=== PATIENT | female | born 1985 | race Caucasian/White ===

== ENCOUNTER 2017-01-12 16:57 | Emergency (ER) | payer MEDICAID, OTHER ==
[~2017-01-12] VITALS: Ht 152.4 cm; Wt 70.0 kg
[~2017-01-12 16:57] MED LIST: BACT800T5 PO; DICY1TAB26 PO; ZOFR4TAB3 SL
[2017-01-12 17:01] VITALS: BP 144/67; PULSE 86; RESP 16; TEMP 97.8; O2SAT 99
--- NOTE | 2017-01-12 17:28 | PD ---
HPI Chief Complaint: Flank/Kidney Pain Time Seen by Provider: 17:09 Travel History International Travel<30 days: No Contact w/Intl Traveler<30days: No Traveled to known affect area: No History of Present Illness HPI The patient was seen and examined in the presence of the nurse. This patient complains of left flank pain. Duration 2 hours. Severity is moderate. No alleviating factors. No injury or fever or hematuria. She feels like she has a full distended bladder and is only urinating small amounts. She says she's had kidney infections in the past and this feels similar. PFSH Past Medical History Arthritis: Yes (RA) Blood Disorders: No Anxiety: Yes Depression: Yes Cancer: No Cardiovascular Problems: No Chemotherapy: No Diabetes: No Diminished Hearing: No Endocrine: No Gastrointestinal Disorders: No Glaucoma: No Genitourinary: Yes Headaches: Yes Hepatitis: No Hiatal Hernia: No Hypertension: No Immune Disorder: No Implanted Vascular Access Dvce: No Musculoskeletal: Yes (TENDINITIS) Neurologic: Yes Psychiatric: No Reproductive: No (PT IS 7 WEEKS ) Respiratory: No Immunizations Current: Yes Radiation Therapy: No Sickle Cell Disease: No Thyroid Disease: No Influenza Vaccination: No ?: Not LMP: NOW Past Surgical History Abdominal Surgery: Yes AICD: No Appendectomy: Yes Arteriovenous Shunt: No Cardiac Surgery: No Ear Surgery: No Endocrine Surgery: No Eye Surgery: No Genitourinary Surgery: No Gynecologic Surgery: No Insulin Pump: No Joint Replacement: No Neurologic Surgery: No Oral Surgery: No Pacemaker: No Thoracic Surgery: No Other Surgery: Yes (CYST REMOVAL HYOID BONE) Social History Alcohol Use: No Tobacco Use: Yes (1/2PPD) Substance Use: No Allergies-Medications (Allergen,Severity, Reaction): Coded Allergies: Vicodin (Verified Allergy, Severe, Hives, 01/12/17) Latex (Verified Allergy, Mild, Rash, 01/12/17) Reported Meds & Prescriptions Reported Meds & Active Scripts Active Flomax (Tamsulosin HCl) 0.4 Mg Cap 0.4 Mg PO HS Zofran (Ondansetron HCl) 4 Mg Tab 4 Mg PO Q6HR PRN Percocet (Oxycodone-Acetaminophen) 5-325 mg Tab 1 Tab PO Q6H PRN Review of Systems General / Constitutional: No: Fever Eyes: No: Visual changes HENT: No: Headaches Cardiovascular: No: Chest Pain or Discomfort Respiratory: No: Shortness of Breath Gastrointestinal: No: Abdominal Pain Genitourinary: Positive: Hesitancy, Flank Pain, No: Dysuria Musculoskeletal: No: Pain Skin: No Rash Neurologic: No: Weakness Psychiatric: No: Depression Endocrine: No: Polydipsia Hematologic/Lymphatic: No: Easy Bruising Physical Exam Narrative GENERAL: Well-nourished, well-developed patient with left flank pain. SKIN: Focused skin assessment reveals no rash and nodules. Skin is Warm and dry. HEAD: Atraumatic. Normocephalic. EYES: Pupils equal and round. No scleral icterus. No injection or drainage. ENT: No nasal bleeding or discharge. Mucous membranes pink and moist. NECK: Trachea midline. No JVD. CARDIOVASCULAR: Regular rate and rhythm. No murmur appreciated. RESPIRATORY: No accessory muscle use. Clear to auscultation. Breath sounds equal bilaterally. GASTROINTESTINAL: Abdomen soft, non-tender, nondistended. Hepatic and splenic margins not palpable. MUSCULOSKELETAL: No obvious deformities. No clubbing. No cyanosis. No edema. No midline tenderness of the back. Mild left CVA tenderness present NEUROLOGICAL: Awake and alert. No obvious cranial nerve deficits. Motor grossly within normal limits. Normal speech. PSYCHIATRIC: Appropriate mood and affect; insight and judgment normal. Data Data Last Documented VS Vital Signs Date Time Temp Pulse Resp B/P Pulse Ox O2 Delivery O2 Flow Rate FiO2 01/12/17 19:01 98.1 82 20 134/64 100 Orders Urinary Catheter Insert/Apply (01/12/17 17:19) Urinalysis - C+S If Indicated (01/12/17 17:19) Ed Urine Pregnancytest Poc (01/12/17 17:19) Ct Abd/Pel W/O Iv Contrast (01/12/17 ) Ondansetron Inj (Zofran Inj) (01/12/17 17:45) Morphine Inj (Morphine Inj) (01/12/17 17:45) Urine Culture (01/12/17 17:34) Hydromorphone Pf Inj (Dilaudid Pf Inj) (01/12/17 19:15) Ondansetron Inj (Zofran Inj) (01/12/17 19:15) Labs Laboratory Tests Test 01/12/17 17:34 Urine Collection Type CATH Urine Color LIGHT-RED Urine Turbidity SLIGHT Urine pH 6.0 Urine Specific Peculiar 1.020 Urine Protein 30 mg/dL Urine Glucose (UA) NEG mg/dL Urine Ketones NEG mg/dL Urine Occult Blood LARGE Urine Nitrite NEG Urine Bilirubin NEG Urine Leukocyte Esterase TRACE Urine RBC INNUM /hpf Urine WBC 3-5 /hpf Urine Squamous Epithelial >8 /hpf Cells Urine Transitional Epithelial 0-2 /hpf Cells Urine Bacteria FEW /hpf Microscopic Urinalysis Comment CULTURE INDICATED MDM Medical Decision Making Medical Screen Exam Complete: Yes Emergency Medical Condition: Yes Medical Record Reviewed: Yes Differential Diagnosis Pyelonephritis, kidney stone, sciatica, urinary retention Narrative Course I have reviewed the patient's electronic medical record. Patient was here 2014 for minor complaints I would like to start the workup with urine evaluation. She cannot produce a sample so Jenkins catheter was placed to evaluate for retention as well as obtain accurate specimen. Urinalysis shows blood without sign of infection Urine is negative CT shows 4 mm left-sided kidney stone with some hydronephrosis This is the cause of her pain I wrote her prescriptions for Percocet and Zofran and Flomax She will follow-up with urologist I gave her 1 additional dose of pain medication She is improved afterwards Diagnosis Primary Impression: Kidney stone on left side Additional Instructions: The patient was advised to follow up with urologist and return if they worsen. The patient was warned about potential sedation for the medications they will receive on prescription. Med/Other Pt SpecificInfo: Prescription(s) given Scripts Tamsulosin (Flomax)0.4 Mg Cap0.4 Mg PO HS #10 CAP Ref 0 Prov:Redd Og MD 01/12/17 Ondansetron (Zofran)4 Mg Tab4 Mg PO Q6HR PRN (NAUSEA OR VOMITING) #12 TAB Ref 0 Prov:Redd Og MD 01/12/17 Oxycodone-Acetaminophen (Percocet)5-325 mg Tab1 Tab PO Q6H PRN (PAIN) #25 TAB Ref 0 Prov:Redd Og MD 01/12/17 Disposition: 01 DISCHARGE HOME Condition: Stable Redd Og MD Jan 12, 2017 17:28
[2017-01-12] MEDS ORDERED: MORPHINE SULFATE 4 MG/ML INJ IM ONE (17:45)
[2017-01-12] MEDS ORDERED: ONDANSETRON HCL 4 MG/2 ML VIAL IM ONE (17:45)
[2017-01-12 18:02] LABS: BLOOD, URINE LARGE (NEG); GLUCOSE,URINE NEG (NEG); KETONE, URINE NEG (NEG); NITRITE,URINE NEG (NEG)
[2017-01-12 18:23] LABS: METHOD OF COLLECTION CATH; URINE COLOR LIGHT-RED (YELLW/STRAW)
[2017-01-12 18:24] LABS: BACTERIA, URINE FEW /hpf; COMMENT (UR) CULTURE INDICATED; CULTURE IF INDICATED CULTURE INDICATED; RBC, URINE INNUM /hpf (0-3); SQUAMOUS EPITHELIAL CELL URINE >8 /hpf (0-5); TRANSITIONAL EPI CELLS, URINE 0-2 /hpf
--- NOTE | 2017-01-12 18:59 | RADHPO ---
EXAM DATE/TIME: 01/12/2017 18:09 [facility] COMPARISON: No previous studies available for comparison. INDICATIONS : Left flank pain. ORAL CONTRAST: No oral contrast ingested. RADIATION DOSE: 12.97 CTDIvol (mGy) MEDICAL HISTORY : Crohn's disease. SURGICAL HISTORY : Appendectomy. ENCOUNTER: Initial ACUITY: 2 days PAIN SCALE: 6/10 LOCATION: Left flank TECHNIQUE: Volumetric scanning of the abdomen and pelvis was performed. Using automated exposure control and ad justment of the mA and/or kV according to patient size, radiation dose was kept as low as reasonably achievable to obtain optimal diagnostic quality images. FINDINGS: Multiple small stones are seen in the renal collecting systems bilaterally, these all measure less th an 5 mm. There is moderate dilatation of the left collecting system and left ureter. There is a 0.4 cm stone in the left distal ureter just above the UVJ. The bladder is decompressed by a Jenkins estefania ter. The visualized portions of the liver and spleen are normal for a noncontrast CT examination. The puckett creas, adrenal glands, aorta and IVC appear unremarkable for a noncontrast CT examination. No pelvic masses are seen. The bowel is unremarkable. The lung bases are clear. The bony structures are germán ssly intact. CONCLUSION: Numerous small renal stones seen bilaterally. There is an obstructing stone at the le ft distal ureter just above the left UVJ measuring 4 mm resulting in moderate hydronephrosis and hydr oureter on the left. Laith Clark MD on January 12, 2017 at 18:51 Board Certified Radiologist. This report was verified electronically.
[2017-01-12 19:01] VITALS: BP 134/64; PULSE 82; RESP 20; TEMP 98.1; O2SAT 100
[2017-01-12] MEDS ORDERED: PERC5TAB12 PO (19:04)
[2017-01-12] MEDS ORDERED: ZOFR4TAB PO (19:04)
[2017-01-12] MEDS ORDERED: TAMS5CAP PO (19:04)
[2017-01-12] MEDS ORDERED: ONDANSETRON HCL 4 MG/2 ML VIAL IVP ONE (19:15)
[2017-01-12] MEDS ORDERED: HYDROmorphone HCL PF 1 MG/ML VIAL IVS ONE (19:15)
[2017-01-12 19:55] VITALS: BP 120/71
== END 2017-01-12 19:57 | disposition home or self-care (01) ==
LOC: PHED 16:57
DX: O26.91 Pregnancy related conditions, unspecified, first trimester (principal); N20.0 Calculus of kidney; Z3A.01 Less than 8 weeks gestation of pregnancy; K50.90 Crohn's disease, unspecified, without complications; F17.210 Nicotine dependence, cigarettes, uncomplicated
CPT/HCPCS: 51702; 74176; 81001; 84703; 87086; 96372; 96374; 96375; 99284; J1170; J2270; J2405